=== PATIENT | male | born 1975 | race Two or more races ===

== ENCOUNTER → 2018-03-23 | Outpatient (CLI) | payer OTHER ==
[~2018-03-23] MED LIST: GADOBUTROL 10 MMOL/10 ML PFS ONE
== END | disposition home or self-care (01) ==
LOC: RAD 08:17
PROVIDERS: ATTEND Family Medicine Adult Medicine
DX: H53.9 Unspecified visual disturbance (principal)
CPT/HCPCS: 70553; A9585